=== PATIENT | male | born 1995 | race Caucasian/White ===

== ENCOUNTER 2021-03-28 17:50 | Emergency (ER) | payer BC ==
[2021-03-28 21:35] LABS: HEMOGLOBIN 14.8 gm/dl (14.0-17.5); RED BLOOD COUNT 4.46 M/UL (4.20-5.50); WHITE BLOOD COUNT 5.3 K/UL (4.5-11.0)
[2021-03-28 22:09] LABS: BUN/CREATININE RATIO 15 (0-10)
[2021-03-28] MEDS ORDERED: NAPROSYN500 MG PO (22:28)
== END 2021-03-28 22:38 | disposition home or self-care (01) ==
LOC: ER1 17:50
PROVIDERS: Physician Assistant
DX: N50.811 Right testicular pain (principal); R10.31 Right lower quadrant pain; Z87.442 Personal history of urinary calculi
CPT/HCPCS: 76870; 80053; 81001; 83690; 85025; 99284